=== PATIENT | male | born 2000 | race Caucasian/White ===

== ENCOUNTER 2023-07-06 18:13 | Day surgery (SDC) | payer SELFPAY ==
[2023-07-06] MEDS ORDERED: Rabies Vaccine Human 2.5 UNITS VIAL ONE (19:41)
[2023-07-06] MEDS ORDERED: Rabies Immune Globulin/PF 300 UNITS/ML VIAL IM SCH (20:15)
[2023-07-09] MEDS ORDERED: Rabies Vaccine Human 2.5 UNITS VIAL ONE (11:25)
== END 2023-07-09 ==
LOC: ERS 18:13 → ER/OP 07-09 10:48
PROVIDERS: ATTEND Emergency Medicine
DX: Z23 Encounter for immunization (principal)
CPT/HCPCS: 90375; 90376; 90471; 90675; 96372

== ENCOUNTER → 2023-07-14 | Day surgery (SDC) | payer SELFPAY ==
[~2023-07-14] MED LIST: Rabies Vaccine Human 2.5 UNITS VIAL ONE
== END ==
LOC: ER/OP 18:55
PROVIDERS: ATTEND Emergency Medicine
DX: Z23 Encounter for immunization (principal)
CPT/HCPCS: 90471; 90675